=== PATIENT | male | born 2000 | race Caucasian/White ===

== ENCOUNTER → 2025-04-13 08:57 | Outpatient (CLI) | payer OTHER, SELFPAY ==
--- NOTE | 2025-04-13 09:01 | DI.ECHO.S_ITS ---
[place] [facility] : : [address] : : [place] : : [id number] : : Phone: [phone] Echocardiogram Report + + :Name: YASSINE PEDRAZA Study Date: 04/13/2025 Height: 71 in : :[facility] ReadingLocation: Weight: 215 lb : : Gender: Male BSA: 2.2 m2 : :: 2000 Age: 24 yrs BP: 151/89 mmHg: :Reason For Study: HEART CONDITION : :Ordering Physician: SARAH BETH, : :CARLITOS Performed By: Jensen Meek : :Referring: CARLITOS BURLESON : + + Interpretation Summary 1. Left ventricular contractility is borderline. Estimated ejection fraction is 50 to 55% with no segmental wall motion abnormalities. No LVH. No diastolic dysfunction. 2. The right ventricular contractility is normal. 3. All cardiac chambers are of normal size. 4. No significant valvular abnormalities. 5. No obvious intracardiac shunts. 6. No obvious intracardiac masses nor thrombi. 7. No hemodynamically significant pericardial effusion. Conclusion: Low normal left ventricular systolic function with no significant valvular abnormalities Procedure: A two-dimensional transthoracic echocardiogram with color flow and Doppler was performed. The study quality was technically good. There is no prior echocardiogram noted for this patient. The patient was in normal sinus rhythm during the exam. Left Ventricle: The left ventricle is normal in size. There is normal left ventricular wall thickness. There is no ventricular septal defect visualized. The ejection fraction is estimated to be 50-55%. There are no focal wall motion abnormalities. Diastolic parameters suggest probable normal left ventricular diastolic function and normal filling pressures. Right Ventricle: The right ventricle is normal in size and function. Atria: The left atrial size is normal. Right atrial size is normal. There is no Doppler evidence for an interatrial shunt. Mitral Valve: The mitral valve is normal in structure and function. There is trace mitral regurgitation. Aortic Valve: The aortic valve is trileaflet. The aortic valve opens well. No aortic regurgitation is present. Tricuspid Valve: The tricuspid valve leaflets are thin and pliable. There is a trace or physiologic amount of tricuspid regurgitation. Pulmonic Valve: The pulmonic valve leaflets are thin and pliable; valve motion is normal. There is trace pulmonic regurgitation. Great Vessels: The aortic root is normal size. The dimensions of the ascending aorta are normal. The pulmonary artery is normal size. The inferior vena cava was not visualized. Pericardium/ Pleura There is no pericardial effusion. MMode/2D Measurements & Calculations LVIDd: 5.3 cm LVOT diam: 2.0 cm LVIDs: 3.4 cm Ao root diam: 3.2 cm FS: 35.5 % asc Aorta Diam: 2.5 cm EPSS: 1.2 cm IVSd: 0.76 cm LVPWd: 0.69 cm LV [place]. diameter/BSA (cm/m^2): 2.5 LV sys. diameter/BSA (cm/m^2): 1.6 LA A2 area: 21.9 cm2 RA long axis: 5.2 cm LA A4 area: 17.6 cm2 RA area: 17.7 cm2 LA length (vol): 5.8 cm RA vol: 51.5 ml LA vol: 56.9 ml RA : 23.7 ml/m2 LA vol index: 26.2 ml/m2 RVD1 (basal): 3.2 cm RVD2 (mid): 2.4 cm TAPSE: 2.1 cm Doppler Measurements & Calculations Ao V2 max: 129.4 cm/sec LVOT Max Ramirez: 109.5 cm/sec Ao V2 mean: 94.7 cm/sec LV V1 max P.8 mmHg Ao max P.7 mmHg LV V1 VTI: 25.2 cm Ao mean P.9 mmHg RONAN(I,D): 3.1 cm2 Ao V2 VTI: 26.7 cm RONAN(V,D): 2.8 cm2 sev ratio: 0.94 RONAN indexed to BSA (cm^2/m^2): 1.4 MV E max ramirez: 89.4 cm/sec PA V2 max: 128.0 cm/sec MV A max ramirez: 60.4 cm/sec PA V2 mean: 83.9 cm/sec MV E/A: 1.5 PA mean P.3 mmHg Med Peak E' Ramirez: 8.5 cm/sec PA pr(Accel): 29.3 mmHg E/E' med: 10.5 Lat Peak E' Ramirez: 15.6 cm/sec E/E' lat: 5.7 E/e' average: 8.1 MV dec time: 0.21 sec SV(LVOT): 82.3 ml Reading Physician:KENYON
== END ==
PROVIDERS: Referring Provider Physician Assistant; Visit Provider Physician Assistant
DX: I51.9 Heart disease, unspecified (principal)
CPT/HCPCS: 93306